=== PATIENT | female | born 1990 | race Caucasian/White ===

== ENCOUNTER 2017-07-19 01:48 | Emergency (ER) | payer SELFPAY ==
[2017-07-19 02:23] LABS: APPEARANCE,URINE Clear (CLEAR); BILIRUBIN,URINE Negative (NEGATIVE); COLOR,URINE Yellow (YELLOW); GLUCOSE, URINE (UA) Negative (NEGATIVE); KETONES,URINE Negative (NEGATIVE); LEUKOCYTE ESTERASE ,URINE Trace (NEGATIVE); NITRATE,URINE Negative (NEGATIVE); OCCULT BLOOD,URINE Negative (NEGATIVE); PH,URINE 6.5 (5.0-8.0); PROTEIN,URINE Negative (NEGATIVE); UROBILINOGEN,URINE 0.2 mg/dL (0.2-1.0)
[2017-07-19 02:24] LABS: HCG,QUAL RESULT NEGATIVE (NEGATIVE)
[2017-07-19 02:31] LABS: AMPHET/METH SCREEN,URINE NEGATIVE (NEGATIVE); BARBITURATE SCREEN, URINE NEGATIVE (NEGATIVE); BENZODIAZEPINES SCREEN,URINE POSITIVE (NEGATIVE); CANNABINOID SCREEN,URINE NEGATIVE (NEGATIVE); COCAINE SCREEN,URINE NEGATIVE (NEGATIVE); OPIATE SCREEN,URINE NEGATIVE (NEGATIVE); PHENCYCLIDINE SCREEN,URINE NEGATIVE (NEGATIVE)
[2017-07-19 02:32] LABS: BACTERIA,URINE None Seen /HPF (None Seen); RBC,URINE 0-1 /HPF (0-1); SQUAMOUS EPITHELIAL CELL,UR Rare /LPF (0-2); WBC,URINE 0-1 /HPF (0-1)
[2017-07-19 02:33] LABS: BASOPHILS % (AUTO) 0.6 % (0.0-5.0); EOSINOPHILS % (AUTO) 3.7 % (0.0-8.0); LYMPHOCYTES % (AUTO) 46.2 % (21.0-51.0); MEAN CORPUSCULAR HEMOGLOBIN 31.1 pg (27.0-33.0); MEAN CORPUSCULAR HGB CONC 34.1 g/dL (32.0-36.0); MEAN CORPUSCULAR VOLUME 91.3 fL (79-99); MONOCYTES % (AUTO) 7.3 % (3.0-13.0); NEUTROPHILS % (AUTO) 42.2 % (40.0-77.0); NUCLEATED RED BLOOD CELLS 0.1 % (0.0-0.19); PLATELET COUNT (AUTO) 235 K/uL (130-400); RED BLOOD CELL COUNT(AUTO) 4.06 MIL/uL (4.00-5.50); RED CELL DISTRIBUTION WIDTH 13.1 % (11.0-15.5)
[2017-07-19 02:42] LABS: CREATININE 0.8 mg/dL (0.5-1.5); POTASSIUM 3.8 mmol/L (3.5-5.1)
[2017-07-19 02:48] LABS: ALBUMIN 3.8 g/dL (3.5-5.0); BILIRUBIN,TOTAL 0.3 mg/dL (0.2-1.0); TOTAL PROTEIN, SERUM 7.1 g/dL (6.0-8.3)
== END 2017-07-19 03:48 | disposition home or self-care (01) ==
LOC: EDH 01:48
DX: R20.2 Paresthesia of skin (principal)
CPT/HCPCS: 36415; 80053; 80305; 81001; 81025; 84443; 85025; 93005

== ENCOUNTER 2019-12-05 22:33 | Inpatient (IN) | payer MEDICAID ==
[~2019-12-05] VITALS: Ht 160 cm; Wt 94.3 kg
[2019-12-05] MEDS ORDERED: LACTATED RINGERS 1000ML 1,000 ML IV PRN (22:43)
[2019-12-05] MEDS ORDERED: ROPIVACAINE 0.2% 100ML VIAL 100 ML EP SCH (22:45)
[2019-12-05] MEDS ORDERED: PROMETHAZINE HCL 25 MG/ML 1ML AMPULE IM PRN (22:45)
[2019-12-05] MEDS ORDERED: LACTATED RINGERS 1000ML 1,000 ML IV SCH (22:45)
[2019-12-05] MEDS ORDERED: AMPICILLIN 2GM+NS 100ML 100 ML IV SCH (22:45)
[2019-12-05] MEDS ORDERED: LACTATED RINGERS 500 ML 500 ML IV PRN (22:45)
[2019-12-05] MEDS ORDERED: MEPERIDINE-PF 50 MG/ML SYG IVP PRN (22:45)
[2019-12-05] MEDS ORDERED: EPHEDRINE SULFATE 50 MG/ML AMPULE IVP PRN (22:45)
[2019-12-05] MEDS ORDERED: NALOXONE HCL 0.4 MG/1 ML ML IV PRN (22:45)
[2019-12-05] MEDS ORDERED: PREN-196 PO (22:55)
[2019-12-05] MEDS ORDERED: AMPICILLIN 2GM+NS 100ML 100 ML IV ONE (22:58)
[2019-12-05 23:33] LABS: APPEARANCE,URINE Clear (CLEAR); BILIRUBIN,URINE Negative (NEGATIVE); COLOR,URINE Yellow (YELLOW); GLUCOSE, URINE (UA) Negative (NEGATIVE); KETONES,URINE 15 mg/dL (NEGATIVE); LEUKOCYTE ESTERASE ,URINE Trace (NEGATIVE); NITRATE,URINE Negative (NEGATIVE); OCCULT BLOOD,URINE Negative (NEGATIVE); PH,URINE 6.5 (5.0-8.0); PROTEIN,URINE Negative (NEGATIVE); UROBILINOGEN,URINE 0.2 mg/dL (0.2-1.0)
[2019-12-05 23:41] LABS: BACTERIA,URINE None Seen /HPF (None Seen); RBC,URINE None Seen /HPF (0-1); SQUAMOUS EPITHELIAL CELL,UR Rare /HPF (0-2); WBC,URINE 0-1 /HPF (0-1)
[2019-12-05 23:57] LABS: HEMATOCRIT 37.2 % (36-48); MEAN CORPUSCULAR HEMOGLOBIN 29.2 pg (27.0-33.0); MEAN CORPUSCULAR HGB CONC 33.6 g/dL (32.0-36.0); MEAN CORPUSCULAR VOLUME 86.9 fL (79-99); RED BLOOD CELL COUNT(AUTO) 4.28 MIL/uL (4.00-5.50); RED CELL DISTRIBUTION WIDTH 13.4 % (11.0-15.5); WHITE BLOOD COUNT (AUTO) 10.7 K/uL (4.8-10.8)
[2019-12-06 01:15] VITALS: BP 118/80
[2019-12-06] MEDS: AMPICILLIN 1GM+NS 50ML 50 ML IV SCH ×3 (03:24→22:45)
[2019-12-06] MEDS ORDERED: OXYTOCIN-LR 20 UNITS/1000 ML 1,000 ML IV ONE (03:40)
[2019-12-06] MEDS ORDERED: OXYTOCIN 10 USP UNITS/ML 20 UNIT in LACTATED RINGERS 1000ML 1,000 ML IV SCH (04:00)
[2019-12-06] MEDS ORDERED: OXYTOCIN-LR 20 UNITS/1000 ML 1,000 ML IV SCH (11:00)
[2019-12-06] MEDS ORDERED: WITCH HAZEL 1 PAD TP PRN (11:00)
[2019-12-06] MEDS ORDERED: LANOLIN 30GM OINTMENT TP PRN (11:00)
[2019-12-06] MEDS ORDERED: MEASLES/MUMPS/RUBELLA VACCINE, LIVE 0.5 ML/VIAL SQ PRN (11:00)
[2019-12-06] MEDS ORDERED: DIPH,PERTUSS(ACELL),TET VAC/PF 0.5 ML VIAL IM PRN (11:00)
[2019-12-06] MEDS ORDERED: BENZOCAINE/LANOLIN/ALOE VERA 60 ML AEROSOL TP PRN (11:00)
[2019-12-06] MEDS ORDERED: ACETAMINOPHEN-CODEINE 300/30MG TAB PO PRN (11:00)
[2019-12-06] MEDS ORDERED: ACETAMINOPHEN 325 MG TAB PO PRN (11:00)
[2019-12-06] MEDS: IBUPROFEN 600 MG TABLET PO PRN ×2 (12:55→21:22)
[2019-12-06 14:21] VITALS: BP 111/62
[2019-12-06 16:00] VITALS: BP 102/57
--- NOTE | 2019-12-06 18:00 | NUR ---
ambulating in room to rr per self. voices no concerns
--- NOTE | 2019-12-06 19:01 | NUR ---
report given to [email or web address]
[2019-12-06 19:16] VITALS: BP 116/79
[2019-12-06] MEDS: DOCUSATE SODIUM 100 MG CAP PO SCH (21:19)
[2019-12-07 00:11] VITALS: BP 118/72
[2019-12-07] MEDS: AMPICILLIN 1GM+NS 50ML 50 ML IV SCH ×2 (02:45→06:45)
[2019-12-07 03:46] VITALS: BP 105/62
[2019-12-07 07:04] LABS: HEMATOCRIT 34.7 % (36-48); MEAN CORPUSCULAR HEMOGLOBIN 28.2 pg (27.0-33.0); MEAN CORPUSCULAR VOLUME 88.3 fL (79-99); RED BLOOD CELL COUNT(AUTO) 3.93 MIL/uL (4.00-5.50); RED CELL DISTRIBUTION WIDTH 13.8 % (11.0-15.5); WHITE BLOOD COUNT (AUTO) 9.8 K/uL (4.8-10.8)
[2019-12-07 07:16] VITALS: BP 104/64
[2019-12-07 08:11] LABS: HEPATITIS Bs ANTIGEN SCREEN P Negative (Negative)
[2019-12-07] MEDS: DOCUSATE SODIUM 100 MG CAP PO SCH (09:27)
[2019-12-07] MEDS: IBUPROFEN 600 MG TABLET PO PRN (09:28)
[2019-12-07 11:16] VITALS: BP 131/86
--- NOTE | 2019-12-07 14:25 | NUR ---
PATIENT LEFT UNIT VIA WHEELCHAIR WITH BABY IN ARMS. PERSONAL VEHICLE USED FOR TRANSPORTATION. BABY SECURE IN CARSEAT. NO COMPLAINTS OR CONCERNS ADDRESSED FROM PATIENT ON DISCHARGE.
== END 2019-12-07 14:25 | disposition home or self-care (01) | DRG 560 ==
LOC: LDH 22:33 → WSH 12-06 13:04
PROVIDERS: ADMIT Obstetrics & Gynecology; ATTEND Obstetrics & Gynecology
PROC: 3E033VJ Introduction of Other Hormone into Peripheral Vein, Percutaneous Approach (ICD-10-PCS; principal; 2019-12-06)
PROC: 10E0XZZ Delivery of Products of Conception, External Approach (ICD-10-PCS; 2019-12-06)
PROC: 3E0234Z Introduction of Serum, Toxoid and Vaccine into Muscle, Percutaneous Approach (ICD-10-PCS; 2019-12-06)
PROC: 3E0134Z Introduction of Serum, Toxoid and Vaccine into Subcutaneous Tissue, Percutaneous Approach (ICD-10-PCS; 2019-12-06)
PROC: 3E0R3BZ Introduction of Anesthetic Agent into Spinal Canal, Percutaneous Approach (ICD-10-PCS; 2019-12-06)
PROC: 00HU33Z Insertion of Infusion Device into Spinal Canal, Percutaneous Approach (ICD-10-PCS; 2019-12-06)
DX: O99.824 Streptococcus B carrier state complicating childbirth (principal); Z37.0 Single live birth; E66.01 Morbid (severe) obesity due to excess calories; O99.214 Obesity complicating childbirth; O69.81X0 Labor and delivery complicated by cord around neck, without compression, not applicable or unspecified; Z23 Encounter for immunization; Z3A.39 39 weeks gestation of pregnancy
CPT/HCPCS: 36415; 81001; 85027; 86592; 86850; 86900; 86901; 87340; 90715; A4314; A4606; G0378; J0290; J2175; J2550; J2590; J2795; J7120

== ENCOUNTER 2023-09-06 22:31 | Emergency (ER) | payer BC, MEDICAID ==
[~2023-09-06] VITALS: Ht 160 cm; Wt 79.4 kg
[~2023-09-06 22:31] MED LIST: PREN-196 PO
[2023-09-06] MEDS ORDERED: IBUP-1493 PO (23:42)
[2023-09-07] MEDS: IBUPROFEN 800 MG TAB PO ONE (00:24)
[2023-09-07 00:31] VITALS: BP 123/76; PULSE 97; RESP 20; O2SAT 95
== END 2023-09-07 00:51 | disposition home or self-care (01) ==
LOC: EDH 22:31
DX: S40.012A Contusion of left shoulder, initial encounter (principal); E03.9 Hypothyroidism, unspecified; Z88.1 Allergy status to other antibiotic agents; X58.XXXA Exposure to other specified factors, initial encounter; Y93.89 Activity, other specified; Y92.89 Other specified places as the place of occurrence of the external cause; Y99.8 Other external cause status
CPT/HCPCS: 29105; 73030

== ENCOUNTER → 2024-02-19 | Outpatient (CLI) | payer OTHER ==
[~2024-02-19] MED LIST changes: +IBUP-1493 PO
[2024-02-21 15:12] LABS: CHLAMYDIA DNA N.A.AMPLIFY Negative (Negative); GC DNA N.A. AMPLIFY Negative (Negative)
[2024-02-22 12:09] LABS: Candida species Negative (Negative); Gardnerella vaginalis Positive (Negative); Trichomonas vaginalis Negative (Negative)
== END | disposition home or self-care (01) ==
LOC: LAB 11:54
PROVIDERS: ATTEND Obstetrics & Gynecology
DX: N89.8 Other specified noninflammatory disorders of vagina (principal)
CPT/HCPCS: 36415; 87486; 87797